=== PATIENT | male | born 1990 | race Caucasian/White ===

== ENCOUNTER → 2016-05-14 | Outpatient (REF) | payer BC, OTHER | LOC: M LAB REF 09:15 | PROVIDERS: ATTEND Physician Assistant | DX: J02.9 Acute pharyngitis, unspecified (principal) ==

== ENCOUNTER → 2017-04-04 | Outpatient (CLI) | payer BC, OTHER | LOC: M RAD 08:05 | DX: R22.2 Localized swelling, mass and lump, trunk (principal) | CPT/HCPCS: 76604 ==

== ENCOUNTER → 2018-01-24 | Outpatient (CLI) | payer BC, OTHER ==
[2018-01-28 00:07] LABS: Lyme Disease IgG/IgM Antibodie <0.91 ISR (0.00-0.90); Lyme Disease IgM Ab Quantitati <0.80 index (0.00-0.79)
== END ==
LOC: M LAB 16:23
DX: Z11.9 Encounter for screening for infectious and parasitic diseases, unspecified (principal)
CPT/HCPCS: 36415